=== PATIENT | male | born 1955 | race Caucasian/White ===

== ENCOUNTER 2017-07-27 08:09 | Inpatient (IN) | payer OTHER ==
[2017-07-24 10:03] VITALS: BMI 25.5
[2017-07-27] MEDS ORDERED: CEFAZOLIN/Water 2 GM/20 ML SYRINGE ONE (09:15)
[2017-07-27 09:17] LABS: #Basophils 0.1 thou/uL (0.0-0.2); #Eosinphils 0.1 thou/uL (0.0-0.7); #Lymphocytes 2.1 thou/uL (1.20-3.40); #Monocytes 0.8 thou/uL (0.11-0.59); #Neutrophils 5.7 thou/uL (1.40-6.50); %Basophils 0.7 % (0.0-1.0); %Lymphocytes 24.5 % (21.0-51.0); %Monocytes 8.7 % (0.0-10.0); Hematocrit 48.8 % (42.0-52.0); Mean Platelet Volume 6.4 fL (7.4-10.4); Red Blood Cell (RBC) Count 4.55 mill/uL (4.70-6.10); White Blood Cell (WBC) Count 8.7 thou/uL (4.8-10.8)
[2017-07-27 09:32] LABS: Anion Gap 15 mmol/L (10-20); BUN (Urea Nitrogen) 17 mg/dL (8.4-25.7); Calc. Creatinine Clearance 107 mL/min (70-130); Calcium 9.6 mg/dL (7.8-10.44); Carbon Dioxide 22 mmol/L (23-31); Chloride 103 mmol/L (98-107); Estimated GFR-MDRD 79
[2017-07-27] MEDS ORDERED: Sodium Chloride 0.9% 10 ML ONE (10:44)
[2017-07-27] MEDS ORDERED: Fentanyl 250 MCG/5 ML VIAL ONE (10:58)
[2017-07-27] MEDS ORDERED: Dexamethasone 20 MG/5 ML VIAL ONE (11:16)
[2017-07-27] MEDS ORDERED: Ondansetron HCl/PF 4 MG/2 ML Vial ONE (11:16)
[2017-07-27] MEDS ORDERED: Glycopyrrolate 0.2 MG/ML 5 ML SYRINGE ONE (11:16)
[2017-07-27] MEDS ORDERED: Propofol 200 MG/20 ML VIAL ONE (11:16)
[2017-07-27] MEDS ORDERED: Ketorolac Tromethamine 30 MG/ML VIAL ONE (11:16)
[2017-07-27] MEDS ORDERED: Lidocaine 1% PF 5 ML VIAL ONE (11:16)
[2017-07-27] MEDS ORDERED: ePHEDrine/0.9% NaCl/PF SYRINGE 50 mg/10 ml ONE (11:16)
--- NOTE | 2017-07-27 14:08 | OP ---
DATE OF PROCEDURE: 07/27/2017 SURGEON: Shay Brown M.D. SCREENING REPRESENTATIVE: Clarisse Gomez PROCEDURE: Left L5-S1 laminectomy, facetectomy, and foraminotomy, posterolateral arthrodesis, pedic le screw instrumentation L5-S1, interbody arthrodesis, demineralized bone matrix, local morselized a utograft. PROCEDURE IN DETAIL: The patient was brought into the operating room, intubated. He was rolled in the prone position on gel-filled chest rolls. Incision made exposing L5 and S1 bilaterally and our level was confirmed by x-ray. We performed a left L5-S1 laminectomy, facetectomy, and foraminotomy, the disc space was identified and debrided, but we did not attempt to place an intravertebral devic e because the disc space was entirely collapsed. Next, we placed pedicle screws bilaterally at L5 a nd S1 using lateral fluoroscopic guidance. Rods were secured between the screws. Distraction was a pplied and the screws were then final tightened. The wound was extensively irrigated, immaculate he mostasis was secured. A combination of demineralized bone matrix and local morselized autograft was laid over the right laminar and posterolateral surfaces for the purpose of arthrodesis. Vancomycin powder was applied and the wound was then closed in anatomic layers.
[2017-07-27] MEDS ORDERED: Acetaminophen/Codeine 30-300mg Tablet PO PRN (14:50)
[2017-07-27] MEDS ORDERED: Promethazine HCl 12.5 MG SUPP PR PRN (14:54)
[2017-07-27] MEDS ORDERED: Ondansetron HCl/PF 4 MG/2 ML Vial SLOW IVP PRN (14:54)
[2017-07-27] MEDS ORDERED: HYDROcodone/Acetaminophen 10/325 mg Tablet PO PRN ×2 (14:54)
[2017-07-27] MEDS ORDERED: diphenhydrAMINE 50 MG/ML VIAL IVP PRN (14:54)
[2017-07-27] MEDS ORDERED: Mag-Al 1200 mg/1200 mg/30 ML UDCUP PO PRN (14:54)
[2017-07-27] MEDS ORDERED: Milk Of Magnesia 30 ML UDCUP PO PRN (14:54)
[2017-07-27] MEDS ORDERED: Promethazine HCl 25 MG/ML VIAL IM PRN (14:54)
[2017-07-27] MEDS ORDERED: diphenhydrAMINE 25 MG CAP PO PRN (14:54)
[2017-07-27] MEDS ORDERED: Bisacodyl 10 MG SUPP PR PRN (14:54)
[2017-07-27] MEDS ORDERED: tiZANidine HCl 4 MG TAB PO PRN (14:54)
[2017-07-27] MEDS ORDERED: Sodium Chloride 0.9% 1,000 ML IV SCH (14:54)
[2017-07-27] MEDS ORDERED: Morphine 4 MG/ML VIAL SLOW IVP PRN ×2 (14:57→14:58)
[2017-07-27] MEDS ORDERED: HYDROcodone/Acetaminophen 5/325 mg Tablet ONE ×2 (15:42→16:35)
[2017-07-27] MEDS ORDERED: Ketorolac Tromethamine 30 MG/ML VIAL IVP SCH (18:00)
[2017-07-27] MEDS ORDERED: Zolpidem Tartrate 5 MG TAB PO SCH (21:00)
[2017-07-27] MEDS ORDERED: Famotidine 20 MG TAB PO SCH (21:00)
--- NOTE | 2017-07-27 22:08 | EKG ---
Test Reason : PREOP Blood Pressure : / mmHG Vent. Rate : 061 BPM Atrial Rate : 062 BPM P-R Int : 182 ms QRS Dur : 102 ms QT Int : 446 ms P-R-T Axes : 044 005 040 degrees QTc Int : 448 ms Sinus rhythm with Premature supraventricular complexes Otherwise normal ECG No previous ECGs available Confirmed by GEOFFREY CAPELLAN, DR. Stevenson ([id number]) on 07/27/2017 10:07:41 PM Referred By: LEOPOLDO Confirmed By:DR. Graham HALE MD
[2017-07-28] MEDS ORDERED: Loratadine 10 MG TAB PO SCH (09:00)
[2017-07-28] MEDS ORDERED: Lisinopril 20 MG TAB PO SCH (09:00)
[2017-07-28] MEDS ORDERED: Amlodipine 10 MG TAB PO SCH (09:00)
[2017-07-28] MEDS ORDERED: Tamsulosin HCl 0.4 MG CAP PO SCH (09:00)
[2017-07-28] MEDS ORDERED: traMADol HCl 50 MG TAB PO SCH (09:00)
[2017-07-28] MEDS ORDERED: Docusate (Surfak) 240 MG CAP PO SCH (09:00)
--- NOTE | 2017-07-28 13:45 | DIS ---
HOSPITAL COURSE: The patient is a 62-year-old, male with a past medical history of atrial fibrillation and chronic low back pain, who we saw recently in clinic for worsening low back pain. On his MRI, he was found to have multilevel lumbar degenerative disk disease as well as spondylolis thesis at L5-S1; therefore, an L5-S1 decompression and fusion was recommended by Dr. Brown. Ther e were no complications with the surgery. Following surgery, the patient returned to day stay where his pain was well controlled. He was tolerating diet, voiding appropriate, and ambulatory througho ut the department. He was dismissed to home. We will schedule a followup visit with our clinic as well as x-rays in 2 weeks. I have discussed home care precautions and reason to reach out to us carley carey.
== END 2017-07-27 17:15 | disposition home or self-care (01) | DRG 460 ==
LOC: SURG A 08:09
PROVIDERS: ADMIT Neurological Surgery; ATTEND Neurological Surgery
PROC: 0SG3071 Fusion of Lumbosacral Joint with Autologous Tissue Substitute, Posterior Approach, Posterior Column, Open Approach (ICD-10-PCS; principal; 2017-07-27)
PROC: 0SB40ZZ Excision of Lumbosacral Disc, Open Approach (ICD-10-PCS; 2017-07-27)
DX: M43.17 Spondylolisthesis, lumbosacral region (principal); I10 Essential (primary) hypertension; I48.91 Unspecified atrial fibrillation; M51.37 Other intervertebral disc degeneration, lumbosacral region; F17.210 Nicotine dependence, cigarettes, uncomplicated; I25.10 Atherosclerotic heart disease of native coronary artery without angina pectoris
CPT/HCPCS: 76001; 80048; 85025; 93005; 93010; 96374; A4216; C1713; C1768; J1100; J1170; J1885; J2001; J2405; J2704; J3010; J3370; J3490

== ENCOUNTER 2017-08-11 12:35 | Outpatient (CLI) | payer OTHER ==
--- NOTE | 2017-08-11 16:06 | RAD ---
LUMBAR SPINE TWO VIEWS: History: Post op follow up. FINDINGS: Pedicle screws transfix L5 and S1. There is loss of disc space at L5-S1 and there is evidence of a gr jose I spondylolisthesis of L5-S1. Mild loss of height of all the lumbar vertebrae with mild wedging b eing most pronounced at T12, L1, and L2 levels. Anterior osteophytes. IMPRESSION: 1. Moderate degenerative changes of the lumbar spine. 2. Post-operative changes are noted as described. POS: [facility]
== END 2017-08-11 12:36 | disposition home or self-care (01) ==
LOC: TBSIIMAG 12:35
PROVIDERS: ATTEND Physician Assistant
DX: M54.9 Dorsalgia, unspecified (principal); M47.896 Other spondylosis, lumbar region; Z98.890 Other specified postprocedural states
CPT/HCPCS: 72100

== ENCOUNTER 2018-01-20 10:18 | Outpatient (CLI) | payer OTHER ==
--- NOTE | 2018-01-20 12:25 | RAD ---
LUMBAR SPINE SERIES TWO TO THREE VIEWS: CLINICAL INDICATIONS: Back pain. COMPARISON: 08/11/2017 FINDINGS: There is operative hardware seen at the L5-S1 level, with a grossly stable configuration. Relative l ucency is seen about the left S1 pedicle screw on the frontal projection. Spondylolisthesis at the L 5-S1 level is similar in appearance. Multilevel degenerative changes are redemonstrated. There is a therosclerotic vascular disease noted. IMPRESSION: Grossly stable alignment of the spine with redemonstration of L5-S1 level spondylolisthesis. There i s relative lucency about the left S1 pedicle screw, which may relate to hardware loosening. Recommen d clinical correlation and imaging followup. POS: [facility]
== END 2018-01-20 10:19 | disposition home or self-care (01) ==
LOC: TBSIIMAG 10:18
PROVIDERS: ATTEND Neurological Surgery
DX: M54.9 Dorsalgia, unspecified (principal); M43.17 Spondylolisthesis, lumbosacral region
CPT/HCPCS: 72100